=== PATIENT | male | born 1975 | race Caucasian/White ===

== ENCOUNTER → 2019-07-13 11:11 | Outpatient (BNVA) | payer SELFPAY | PROVIDERS: Family Provider Physician Assistant; PCP Family Medicine; Visit Provider Nurse Practitioner Family | DX: J02.9 Acute pharyngitis, unspecified (principal) | CPT/HCPCS: 87081; 87880 ==

== ENCOUNTER 2020-10-19 14:39 | Outpatient (CLI) | payer SELFPAY ==
--- NOTE | 2020-10-19 14:49 | XR_ITS ---
WS: [id number] Exam: XR lumbar spine 2-3V* [id number] Date/Time of Exam: 10/19/2020 2:53 PM Reason For Exam: CHRONIC BACK PAIN No fracture or dislocation. Disc spaces are preserved. Posterior elements are intact. Slight levoscol iosis. XR/XR lumbar spine 2-3V* [id number] IMPRESSION: 1. Slight levoscoliosis otherwise negative lumbar spine study.
== END 2020-10-19 14:40 | disposition home or self-care (01) ==
PROVIDERS: PCP Family Medicine; Visit Provider Family Medicine
DX: M54.5 Low back pain (principal); G89.29 Other chronic pain
CPT/HCPCS: 72100

== ENCOUNTER 2020-12-13 14:45 | Outpatient (CLI) | payer SELFPAY ==
--- NOTE | 2020-12-13 14:52 | MR_ITS ---
WS: [id number] MRI LUMBAR SPINE NONCONTRAST HISTORY: LOW BACK PAIN COMPARISON: None available. TECHNIQUE: Sagittal and axial multisequence imaging is submitted. Reversal normal cervical lordosis centered at C3-4. There is mild disc osteophyte contact upon the ve ntral cervical cord at the C3-4 level. 2 mm retrolisthesis of L3 and L4. Benign hemangioma in the L2 vertebral body. There is very slight an terior wedging of L3 with no acute edema. Mild disc space narrowing and desiccation at L3-4 and L4-5. Conus terminates normally at L1-2 disc level. L1-L2: Normal. L2-L3: Very mild annular disc bulging and osteophytic ridging. Mild facet and ligamentum flavum arthr itis with no stenosis. L3-L4: Moderate annular disc bulge with a central broad-based protrusion deforming the ventral thecal sac. Disc protrusion contains an annular fissure. There is mild disc contact upon the L4 nerve roots in the lateral recesses. Mild ligamentum flavum hypertrophy there is only mild narrowing into the fo ramen. L4-L5: Mild annular disc bulging and osteophytic ridging. Small central disc protrusion with annular fissure deforming the ventral thecal sac. There is mild facet and ligamentum flavum hypertrophy. Mild bilateral subarticular recess and foraminal stenosis. L5-S1: Very mild annular disc bulging. Mild bilateral facet joint arthritis. RIGHT renal cyst at 2.6 cm. MR/MR lumbar spine wo con* [id number] IMPRESSION: 1. Central disc protrusions at L3-4 and L4-5 with annular fissures causing mil d encroachment upon the ventral thecal sac and L4 and L5 nerve roots respective ly. 2. Mild bilateral encroachment upon the L4 nerve roots in the lateral recesses at L3-4 with mild foraminal narrowing also. 3. Mild bilateral subarticular recess and foraminal stenosis at L4-5.
== END 2020-12-13 14:46 | disposition home or self-care (01) ==
LOC: RADSHAW 14:50
PROVIDERS: PCP Family Medicine; Visit Provider Family Medicine
DX: M51.26 Other intervertebral disc displacement, lumbar region (principal); M48.061 Spinal stenosis, lumbar region without neurogenic claudication
CPT/HCPCS: 72148

== ENCOUNTER → 2021-10-24 10:01 | Outpatient (BNVA) | payer BC, SELFPAY | PROVIDERS: PCP Family Medicine; Referring Provider Family Medicine; Visit Provider Physician Assistant | DX: M51.36 Other intervertebral disc degeneration, lumbar region (principal) | CPT/HCPCS: 99203; 99999 ==

== ENCOUNTER 2022-02-02 11:15 | Outpatient (CLI) | payer BC, SELFPAY ==
--- NOTE | 2022-02-02 12:00 | US_ITS ---
WS: [id number] ULTRASOUND RENAL TECHNIQUE: Ultrasound examination of both kidneys. CLINICAL INFORMATION: Kidney Cysts COMPARISON: None. FINDINGS: RIGHT:Simple mid RIGHT renal cyst measuring 1.4 x 2.0 x 1.8 cm Right kidney is normal in size and appearance. Echogenicity: Normal. Cortical thickness: 1.3 cm; Normal. Hydronephrosis: None. Perinephric fluid: None. Right kidney measures: 10.7 cm x 5.7 cm x 5.1 cm. LEFT: Left kidney is normal in size and appearance. Echogenicity: Normal. Cortical thickness: 1.1 cm; Normal. Hydronephrosis: None. Perinephric fluid: None. Left kidney measures: 9.8 cm x 4.6 cm x 4.1 cm. Normal visualized aorta. US/US renal BI* [id number] IMPRESSION: 1. No hydronephrosis in either kidney. 2. Normal bladder. 3. Simple mid RIGHT renal cyst measuring 1.4 x 2.0 x 1.8 cm 4. LEFT kidney is normal in appearance.
== END 2022-02-02 11:16 | disposition home or self-care (01) ==
LOC: RAD 11:15
PROVIDERS: PCP Family Medicine; Visit Provider Urology
DX: N28.1 Cyst of kidney, acquired (principal)
CPT/HCPCS: 76770; 81003; 99212

== ENCOUNTER 2023-10-03 09:43 | Day surgery (SDC) | payer BC, MEDICAID, SELFPAY ==
[2023-10-03 09:58] VITALS: BP 140/76; PULSE 81; RESP 18; TEMP 36.2; O2SAT 100; BMI 25.0
[2023-10-03] MEDS: sodium chloride 0.9% 1,000 ML 30 ML IV (10:03)
--- NOTE | 2023-10-03 10:52 | ANES.PREANE2 ---
Pre-Anesthetic Assessment Height/Weight: Height 1.83 m Weight 83.915 kg Temp Pulse Resp BP Pulse Ox O2 Del Method 97.1 F L 81 18 140/76 100 Room Air 10/03/23 09:58 10/03/23 09:58 10/03/23 09:58 10/03/23 09:58 10/03/23 09:58 10/03/23 09:58 Preop Diagnosis: screening Operation Date: 10/03/23 10:45 Proposed Procedures p Colonoscopy(Not Applicable) - Julito Anderson DO Familial anesthetic complications: none Was Beta Jonathan taken within 24 hours: N/A Was Clonidine taken within 24 hours: N/A Last intake: Intake Last Liquid Date 10/02/23 Last Liquid Time 21:00 Last Solid Date 10/01/23 Last Solid Time 18:00 Social Alcohol (once a month) and No tobacco Exam alert, oriented x 3, clear to auscultation bilaterally and regular rate & rhythm Airway Submandibular: within normal limits Cervical ROM: within normal limits Mallampati: Class I Dentition: full Pulmonary None reported CV/HEM None reported None reported Hepatic None reported GI None reported Metabolic Hyperlipidemia Musc/skel Lower Back Pain Neuropsych None reported Anesthetic Plan ASA status: 2 Anesthesia: MAC Risk of > 500 ml blood loss (7ml/kg in children): No Medications/Allergies Home Medications Medication Instructions Recorded Confirmed Last Taken Type No Known Home Medications 07/13/19 10/01/23 Unknown History Allergies Allergy/AdvReac Type Severity Reaction Status Date / Time No Known Allergies Allergy Verified 10/01/23 13:39 Current Medications Generic Name Dose Route Start Last Admin Trade Name Mikyq PRN Reason Stop Dose Admin Sodium Chloride 1,000 mls @ 30 mls/hr 10/03/23 10:00 10/03/23 10:03 Sodium Chloride 0.9% IV 10/04/23 09:59 30 mls/hr .Q24H JACQUELIN Administration PFSH Anesthesia Medical History Renal cyst, right Surgical History Hx of appendectomy Family History Mother , in her 80's No problems noted. Father , in his 80's No problems noted. Social History Smoking and tobacco/nicotine status: never used tobacco/nicotine Alcohol intake: current Alcohol intake frequency: few times a month Marital status: Current occupational status: employed Data Anesthesia Cardiac Studies: No Data to Display
--- NOTE | 2023-10-03 11:23 | W.PM.OPSUD ---
Surgery/Procedure H&P Update DATE OF PROCEDURE: October 03, 2023 DATE H&P PERFORMED: 09/05/23 H&P UPDATE INFORMATION: I have reviewed H&P completed within last 30 days, I have examined patient prior to procedure and No changes to prior documentation PREOP DIAGNOSIS: screening PLANNED PROCEDURE: Operation Date: 10/03/23 10:45 Proposed Procedures p Colonoscopy(Not Applicable) - Julito Anderson DO
[2023-10-03 11:41] VITALS: BP 113/61; PULSE 87; RESP 18; TEMP 36.1; O2SAT 96
--- NOTE | 2023-10-03 11:48 | ANE.PACU2 ---
Inpatient post-anesthesia follow up: Airway intact: Yes Vital signs: Temperature 97 F Pulse Rate 87 Respiratory Rate 18 Blood Pressure 113/61 Pulse Oximetry 96 Oxygen Delivery Me thod Room Air Oxygen Flow Rate Fraction of Inspir ed Oxygen Hydration adequate: Yes Nausea and vomiting: No Pain level: 1 Mental status: Baseline
[2023-10-03 11:56] VITALS: BP 117/67; PULSE 72; RESP 18; O2SAT 96
== END 2023-10-03 12:23 | disposition home or self-care (01) ==
PROVIDERS: PCP Nurse Practitioner; Visit Provider Surgery
PROC: 0DJD8ZZ Inspection of Lower Intestinal Tract, Via Natural or Artificial Opening Endoscopic (ICD-10-PCS; CPT 45378; principal; 2023-10-03 10:45)
DX: Z12.11 Encounter for screening for malignant neoplasm of colon (principal); E78.5 Hyperlipidemia, unspecified
CPT/HCPCS: 45378; J2704; J7030